=== PATIENT | female | born 1945 | race Caucasian/White ===

== ENCOUNTER → 2023-03-17 | Outpatient (CLI) | payer MEDICARE, OTHER | END | disposition home or self-care (01) | LOC: RAH 11:02 | PROVIDERS: ATTEND Nurse Practitioner Family | DX: N64.4 Mastodynia (principal); R92.30 Dense breasts, unspecified | CPT/HCPCS: 77066 ==

== ENCOUNTER → 2024-04-20 | Outpatient (CLI) | payer MEDICARE ==
--- NOTE | 2024-04-20 12:05 | HMCIMG ---
DEXA BONE DENSITY SURVEY REASON: UNSPECIFIED MENOPAUSAL AND PERIMENOPAUSAL DISORDER COMPARISON: None TECHNIQUE: DEXA bone densitometry was performed at the lumbar spine and left hip. FINDINGS: Mean bone density in the spine is 1.057 g/sq cm, T score 0.1, within normal limits. Total proximal femur T score on the left is 0.3, also within normal limits. IMPRESSION: 1. Normal bone densitometry findings.
== END | disposition home or self-care (01) ==
LOC: RAH 08:26
PROVIDERS: ATTEND Nurse Practitioner Family
DX: Z13.820 Encounter for screening for osteoporosis (principal); N95.9 Unspecified menopausal and perimenopausal disorder
CPT/HCPCS: 77080